=== PATIENT | male | born 1950 | race Caucasian/White ===

== ENCOUNTER 2020-05-12 09:24 | Inpatient (IN) | payer MEDICARE, OTHER ==
[~2020-05-12] VITALS: Ht 165.1 cm; Wt 85.7 kg
[2020-05-12 11:29] LABS: HEMOGLOBIN 12.3 gm/dl (14.0-17.5); RED BLOOD COUNT 4.12 M/UL (4.20-5.50); WHITE BLOOD COUNT 8.6 K/UL (4.5-11.0)
[2020-05-12 12:05] LABS: BUN/CREATININE RATIO 19 (0-10)
[2020-05-12] MEDS ORDERED: DITROPAN XL5 MG PO (13:35)
[2020-05-12] MEDS ORDERED: CRESTOR5 MG PO (13:36)
[2020-05-12] MEDS ORDERED: LISINOPRIL20 MG PO (13:36)
[2020-05-12] MEDS ORDERED: DITROPAN XL 5 MG5 MG PO (13:37)
[2020-05-12] MEDS ORDERED: ASPIRIN CHEWABL81 MG PO (17:46)
[2020-05-13 02:37] LABS: HEMOGLOBIN 12.1 gm/dl (14.0-17.5); RED BLOOD COUNT 4.12 M/UL (4.20-5.50); WHITE BLOOD COUNT 9.2 K/UL (4.5-11.0)
[2020-05-13 03:06] LABS: BUN/CREATININE RATIO 30 (0-10)
[2020-05-14 06:18] LABS: HEMOGLOBIN 11.6 gm/dl (14.0-17.5); RED BLOOD COUNT 3.88 M/UL (4.20-5.50); WHITE BLOOD COUNT 10.9 K/UL (4.5-11.0)
[2020-05-14 06:44] LABS: BUN/CREATININE RATIO 31 (0-10)
[2020-05-15 04:45] LABS: HEMOGLOBIN 11.6 gm/dl (14.0-17.5); RED BLOOD COUNT 3.93 M/UL (4.20-5.50); WHITE BLOOD COUNT 11.2 K/UL (4.5-11.0)
[2020-05-15 05:13] LABS: BUN/CREATININE RATIO 38 (0-10)
[2020-05-16] MEDS ORDERED: ROBITUSSIN AC PO (08:46)
[2020-05-16] MEDS ORDERED: AMLODIPINE BESYL5 MG PO (08:46)
--- NOTE | 2020-05-16 11:35 | NUR ---
PATIENT SATS 86% ON ROOM AIR DURING AMBULATION
[2020-05-16] MEDS ORDERED: MEDROL4 MG PO (15:36)
[2020-05-17] MEDS ORDERED: CODEINE-GUAIFE473 ML PO (11:42)
== END 2020-05-17 12:05 | disposition home health service (06) | DRG 177 ==
LOC: ER1 09:24 → CDU 13:04 → MED SURG 4 13:04
PROVIDERS: Family Medicine; ADMIT Internal Medicine
PROC: XW033E5 Introduction of Remdesivir Anti-infective into Peripheral Vein, Percutaneous Approach, New Technology Group 5 (ICD-10-PCS; principal; 2020-05-12)
DX: U07.1 COVID-19 (principal); J96.01 Acute respiratory failure with hypoxia; J12.82 Pneumonia due to coronavirus disease 2019; I44.0 Atrioventricular block, first degree; R00.1 Bradycardia, unspecified; E78.5 Hyperlipidemia, unspecified; E87.6 Hypokalemia; J40 Bronchitis, not specified as acute or chronic; Z88.8 Allergy status to other drugs, medicaments and biological substances; Z82.49 Family history of ischemic heart disease and other diseases of the circulatory system; Z80.8 Family history of malignant neoplasm of other organs or systems; Z87.891 Personal history of nicotine dependence; D64.89 Other specified anemias; Z87.442 Personal history of urinary calculi; Z79.82 Long term (current) use of aspirin; Z79.899 Other long term (current) drug therapy; I16.0 Hypertensive urgency
CPT/HCPCS: 36415; 36600; 71045; 80053; 82550; 82553; 82803; 82962; 83036; 83605; 83874; 83880; 84439; 84443; 84484; 85025; 85027; 86900; 86901; 86927; 93005; 93270; 96365; 96375; 99285; J0696; J1100; J1650; J1940; J7030; U0002

== ENCOUNTER → 2020-05-28 | Outpatient (CLI) | payer MEDICARE, OTHER ==
[~2020-05-28] MED LIST: AMLODIPINE BESYL5 MG PO; ASPIRIN CHEWABL81 MG PO; CODEINE-GUAIFE473 ML PO; CRESTOR5 MG PO; DITROPAN XL 5 MG5 MG PO; DITROPAN XL5 MG PO; ECOTRIN81 MG PO; HYDROCODON-ACE1 EAC4 PO; LEVOFLOXACIN500 MG PO; LISINOPRIL20 MG PO; MEDROL4 MG PO; ROBITUSSIN AC PO
[2020-05-28 16:49] LABS: HEMOGLOBIN 15.3 gm/dl (14.0-17.5); RED BLOOD COUNT 5.15 M/UL (4.20-5.50); WHITE BLOOD COUNT 7.9 K/UL (4.5-11.0)
[2020-05-28 16:55] LABS: BUN/CREATININE RATIO 19 (0-10)
== END ==
LOC: LAB 14:52
PROVIDERS: Internal Medicine Cardiovascular Disease
DX: I45.5 Other specified heart block (principal); I49.5 Sick sinus syndrome; R55 Syncope and collapse; R91.8 Other nonspecific abnormal finding of lung field; Z20.822 Contact with and (suspected) exposure to COVID-19
CPT/HCPCS: 36415; 71046; 80048; 85025; U0003

== ENCOUNTER 2020-05-30 11:06 | Outpatient (CLI) | payer MEDICARE, OTHER ==
[~2020-05-30] VITALS: Ht 165.1 cm; Wt 83.9 kg
[~2020-05-30 11:06] MED LIST changes: -ECOTRIN81 MG PO; -HYDROCODON-ACE1 EAC4 PO; -LEVOFLOXACIN500 MG PO
[2020-05-30] MEDS ORDERED: AMLODIPINE BESYL5 MG PO (12:01)
[2020-05-30] MEDS ORDERED: DITROPAN XL 5 MG5 MG PO (12:01)
[2020-05-30] MEDS ORDERED: CRESTOR5 MG PO (12:02)
[2020-05-30] MEDS ORDERED: ECOTRIN81 MG PO (12:03)
[2020-05-30] MEDS ORDERED: HYDROCODON-ACE1 EAC4 PO (17:19)
[2020-05-30] MEDS ORDERED: LEVOFLOXACIN500 MG PO (17:19)
== END 2020-05-31 11:06 | disposition home or self-care (01) ==
LOC: PROG CARE 11:06 → CATH 11:06 → PROG CARE 18:05 → CATH 05-31 11:06
DX: I44.1 Atrioventricular block, second degree (principal); R00.1 Bradycardia, unspecified; I44.0 Atrioventricular block, first degree; I45.5 Other specified heart block; I11.9 Hypertensive heart disease without heart failure; I08.1 Rheumatic disorders of both mitral and tricuspid valves; I27.20 Pulmonary hypertension, unspecified; D64.9 Anemia, unspecified; E78.00 Pure hypercholesterolemia, unspecified; I45.10 Unspecified right bundle-branch block; E55.9 Vitamin D deficiency, unspecified; Z86.16 Personal history of COVID-19; Z87.01 Personal history of pneumonia (recurrent); Z87.891 Personal history of nicotine dependence; Z79.899 Other long term (current) drug therapy; Z87.442 Personal history of urinary calculi; Z79.82 Long term (current) use of aspirin; Z88.8 Allergy status to other drugs, medicaments and biological substances
CPT/HCPCS: ECHO; 33208; 33225; 93005; 93306; 99152; 99153; C1769; C1898; C1900; C2621; J1644; J2250; J3010; J3370; J7040; J7050; J7070; Q9965